=== PATIENT | male | born 1960 | race Caucasian/White ===

== ENCOUNTER 2020-11-20 19:16 | Emergency (ER) | payer OTHER ==
[2020-11-20] MEDS ORDERED: AUGMENTIN 875-1 EACH PO (21:42)
[2020-11-20] MEDS ORDERED: IBU400 MG PO (21:42)
== END 2020-11-20 21:49 | disposition home or self-care (01) ==
LOC: ER1 19:16
DX: K03.81 Cracked tooth (principal); I10 Essential (primary) hypertension; F17.200 Nicotine dependence, unspecified, uncomplicated
CPT/HCPCS: 99282

== ENCOUNTER 2020-11-23 11:26 | Emergency (ER) | payer OTHER ==
[~2020-11-23 11:26] MED LIST: AUGMENTIN 875-1 EACH PO; IBU400 MG PO
[2020-11-23 12:54] LABS: HEMOGLOBIN 14.7 gm/dl (14.0-17.5); RED BLOOD COUNT 4.44 M/UL (4.20-5.50); WHITE BLOOD COUNT 10.7 K/UL (4.5-11.0)
[2020-11-23 13:34] LABS: BUN/CREATININE RATIO 30 (0-10)
[2020-11-23] MEDS ORDERED: MOBIC15 MG PO (15:10)
[2020-11-23] MEDS ORDERED: ONDANSETRON ODT4 MG SL (15:10)
== END 2020-11-23 18:03 | disposition home or self-care (01) ==
LOC: ER1 11:26
PROVIDERS: Physician Assistant
DX: R51.9 Headache, unspecified (principal); E11.65 Type 2 diabetes mellitus with hyperglycemia; I10 Essential (primary) hypertension; J44.9 Chronic obstructive pulmonary disease, unspecified; Z79.4 Long term (current) use of insulin; Z79.899 Other long term (current) drug therapy; Z20.822 Contact with and (suspected) exposure to COVID-19
CPT/HCPCS: 0240U; 70450; 80053; 81001; 82962; 85025; 96374; 96375; 96376; 99284; J1200; J1885; J2765; J7030